=== PATIENT | male | born 1970 | race Hispanic/Latino ===

== ENCOUNTER 2018-03-20 18:53 | Inpatient (IN) | payer SELFPAY ==
[2018-03-20 19:30] LABS: #Lymphocytes 1.4 thou/uL (1.20-3.40); #Monocytes 0.7 thou/uL (0.11-0.59); #Neutrophils 12.8 thou/uL (1.40-6.50); %Basophils 0.2 % (0.0-1.0); %Eosinophils 0.3 % (0.0-10.0); %Lymphocytes 9.3 % (21.0-51.0); %Monocytes 4.9 % (0.0-10.0); %Neutrophils 85.4 % (42.0-75.0); Hemoglobin 17.3 g/dL (14.0-18.0); Mean Corpuscular HGB CONC 34.1 g/dL (32.0-36.0); Mean Corpuscular Hemoglobin 31.6 pg (27.0-31.0); Mean Corpuscular Volume 92.9 fL (78.0-98.0); Mean Platelet Volume 7.6 fL (7.4-10.4); Platelet Count 273 thou/uL (130-400); RBC Distribution Width 11.7 % (11.5-14.5); Red Blood Cell (RBC) Count 5.46 mill/uL (4.70-6.10)
[2018-03-20 19:40] LABS: Bilirubin Negative (Negative); Blood, Urine Negative (Negative); Clarity TURBID (Clear); Glucose, Urine (Dipstick) Negative (Negative); Leukocyte Negative (Negative); Nitrite Negative (Negative); Protein, Urine (Dipstick) 100 mg/dL (Neg-Trace); Specific Gravity, Urine 1.037 (1.002-1.036); Urobilinogen 0.2 mg/dL (0.2-1.0); pH, Urine 5.5 (5.0-9.0)
[2018-03-20 19:42] LABS: Bacteria/HPF None Seen HPF (None Seen); Pathc Cast-AUWi Flag 3.19 (0-2.49); RBC/HPF 0-3 HPF (0-3); Squamous Epithelial 0-3 HPF (0-3); WBC/HPF 0-3 HPF (0-3)
[2018-03-20 19:50] LABS: Crystals/HPF 4+ AMORPH URATES HPF (Negative); Hyaline Casts/LPF NONE SEEN LPF (0-3 Hyaline); Other Casts/LPF None Seen LPF (0-3 Hyaline)
[2018-03-20 19:54] LABS: ALT (SGPT) 69 U/L (8-55); AST (SGOT) 71 U/L (5-34); Albumin 5.5 g/dL (3.5-5.0); Alkaline Phosphatase 105 U/L (40-150); Anion Gap 18 mmol/L (10-20); BUN (Urea Nitrogen) 31 mg/dL (8.9-20.6); Bilirubin, Total 1.3 mg/dL (0.2-1.2); CK (CPK) 986 U/L (30-200); Calc. Creatinine Clearance 0 mL/min (70-130); Calcium 10.6 mg/dL (7.8-10.44); Carbon Dioxide 27 mmol/L (22-29); Chloride 95 mmol/L (98-107); Estimated GFR-MDRD 61; Globulin 4.5 g/dL (2.4-3.5); Glucose 192 mg/dL (70-105); Potassium 3.6 mmol/L (3.5-5.1); Sodium 136 mmol/L (136-145)
[2018-03-20] MEDS ORDERED: Ondansetron ODT 4 MG TAB ONE (23:05)
[2018-03-20] MEDS ORDERED: hydrALAZINE 20 MG/ML VIAL ONE (23:58)
[2018-03-20] MEDS ORDERED: Ketorolac Tromethamine 30 MG/ML VIAL ONE (23:58)
[2018-03-21 00:19] LABS: Lactic Acid 5.5 mmol/L (0.5-2.2)
[2018-03-21 00:24] LABS: Troponin I Less than 0.010 ng/mL (< 0.028)
[2018-03-21 00:26] LABS: CKMB 8.5 ng/mL (0-6.6)
[2018-03-21] MEDS ORDERED: Labetalol HCl 100 MG/20 ML VIAL ONE (03:00)
[2018-03-21 05:26] LABS: Lactic Acid 1.2 mmol/L (0.5-2.2)
[2018-03-21 06:13] LABS: Medtox Control Line Valid? VALID (VALID); Medtox Reader # READER 4; Methamphetamine Detected (NotDetected); THC/Cannabinoid Screen Detected (NotDetected)
[2018-03-21 06:14] LABS: Amphetamine Not Detected (NotDetected); Barbiturates Screen Not Detected (NotDetected); Benzodiazepine Screen Not Detected (NotDetected); Cocaine Metabolite Screen Not Detected (NotDetected); Methadone Not Detected (NotDetected); Opiate Screen Not Detected (NotDetected); Oxycodone Screen Not Detected (NotDetected); Phencyclidine (PCP) Not Detected (NotDetected); Tricyclic Screen Not Detected (NotDetected)
[2018-03-21 07:52] VITALS: BMI 25.7
[2018-03-21] MEDS ORDERED: Acetaminophen 325 MG TAB PO PRN (08:38)
[2018-03-21] MEDS ORDERED: Ondansetron HCl/PF 4 MG/2 ML Vial IVP PRN (08:38)
[2018-03-21] MEDS ORDERED: Ondansetron ODT 4 MG TAB SL PRN (08:38)
[2018-03-21 12:04] VITALS: BP 149/90; TEMP 98.1
[2018-03-21 13:14] LABS: ALT (SGPT) 46 U/L (8-55); AST (SGOT) 45 U/L (5-34); Albumin 4.3 g/dL (3.5-5.0); Alkaline Phosphatase 79 U/L (40-150); Anion Gap 13 mmol/L (10-20); BUN (Urea Nitrogen) 23 mg/dL (8.9-20.6); Bilirubin, Total 1.5 mg/dL (0.2-1.2); Calc. Creatinine Clearance 132 mL/min (70-130); Calcium 9.5 mg/dL (7.8-10.44); Carbon Dioxide 25 mmol/L (22-29); Chloride 103 mmol/L (98-107); Estimated GFR-MDRD Greater than 90; Globulin 3.4 g/dL (2.4-3.5); Glucose 124 mg/dL (70-105); Potassium 3.5 mmol/L (3.5-5.1); Protein, Total 7.7 g/dL (6.0-8.3); Sodium 137 mmol/L (136-145)
--- NOTE | 2018-03-21 13:22 | SS ---
DATE OF ADMISSION: 03/21/2018 DATE OF DISCHARGE: 03/21/2018 DISCHARGE DIAGNOSES: 1. Dehydration. 2. Acute kidney injury, resolved. 3. Mild rhabdomyolysis, resolved. 4. Methamphetamine use. 5. Myalgias. CONSULTATIONS: None. PROCEDURES: None. HISTORY OF PRESENT ILLNESS: Mr. Christopher is a 47-year-old gentleman presented to the [facility] for nausea, vomiting, and diffuse muscle aches after working outside for the last week and tryi ng to keep up with fluids. He developed myalgias and generalized aches, who presented to the emergency department. He was found to have a creatinine about 50% more than his baseline, elevated CK at 900 and elevated lactic acid. He was given IV fluids and we were called for admission. He was placed inpatient on telemetry; however, there are no beds, so he is overflowed to the [facility]. Bakari altamirano is getting IV fluids since this morning. The nausea has resolved. He is feeling markedly better a nd is able to tolerate food. PAST MEDICAL HISTORY: 1. Hypertension. 2. Medical nonadherence to treatment. PAST SURGICAL HISTORY: None. HOME MEDICATIONS: None except for occasional [id number] Nexium. ALLERGIES: No known drug allergies. FAMILY HISTORY: Negative for clotting or bleeding disorder, no immune dysfunction. SOCIAL HISTORY: He denies habits. He has a urine drug screen positive for methamphetamine and marij uana. He does admit to marijuana, but denies doing methamphetamine. REVIEW OF SYSTEMS: Ten point review of systems was negative except as stated as per HPI. PHYSICAL EXAMINATION: VITAL SIGNS: Temperature 98.1, pulse 81, blood pressure is 149/90, respiratory rate 18, satting 93%- 95% on room air. GENERAL: He is awake. He is alert. He is oriented x3, disheveled looking male who a ppears to be in no acute distress. HEENT: Head is normocephalic, atraumatic. Pupils are equal, round, and reactive to light bilaterall y. Mucous membranes are moist. There is no visible lesions. No thrush. NECK: Supple. There is no lymphadenopathy, JVD, or thyromegaly. LUNGS: Clear. No wheeze, no rales or rhonchi. CARDIOVASCULAR: Normal S1, S2. No S3 or S4. No audible murmurs. ABDOMEN: Soft, nontender, nondistended. No hepatosplenomegaly. No rebound, rigidity or guarding. He has got good bowel sounds. EXTREMITIES: No cyanosis, no clubbing, no edema. He has got 2+ peripheral pulses in dorsalis pedis, posterior tibial pulses. SKIN: Warm, moist and well perfused. He has no other rashes or lesions. MUSCULOSKELETAL: Normal to inspection. Large joints appear normal. There is no evidence of inflamm ation or palpable effusions. He has got no muscle tenderness. NEUROLOGIC: Cranial nerves II through XII are grossly intact. He has no focal deficits. He has nor mal speech. He has 5/5 strength in all 4 extremities. LABORATORY DATA: Admission white blood cell count of 15,000, hemoglobin 17.3, hematocrit 50.7, plate let count is 273,000 with a slight granulocytosis. His initial chemistry profile showed a CMP that w as fairly normal. Sodium 136, potassium 3.6, chloride 95, bicarbonate 27, BUN 31, creatinine 1.27, g lucose 192. Lactic acid initially was 2.2 with a repeat 5.5 and then down to 3.2 at 0123 today. His LFTs were slightly elevated at 71 and 69 with alkaline phosphatase of 105. CK is 96 with a repeat o f 642. Total protein was elevated at 10 with an albumin of 5.5 and globulin of 4.5. CK-MB was sligh tly elevated at 8.5 with a normal undetectable troponin less than 0.010. Urinalysis was normal excep t for slightly elevated specific gravity. Urine drug screen showed methamphetamines and THC positive. ASSESSMENT AND PLAN: 1. Dehydration. The patient got IV fluids and is resolved. 2. Acute kidney injury, resolved with fluids. 3. Mild rhabdomyolysis, resolved with fluids. 4. Methamphetamine and marijuana abuse, counseling. Patient was admitted to floor and hydrated. On my evaluation, he was stable for discharge. PHYSICAL EXAMINATION: The patient was seen and examined at the time of discharge. Discharge plan and disposition was discussed with the patient [id number] at the bedside. DISCHARGE MEDICATIONS: None. DISCHARGE ACTIVITY: As tolerated. DISCHARGE DIET: Regular, heart healthy diet with plenty of fluids. FOLLOWUP APPOINTMENTS: The patient needs to establish with the PCP. No specific followup was made. DISCHARGE CONDITION: Stable.
--- NOTE | 2018-03-23 12:09 | EKG ---
Test Reason : Blood Pressure : / mmHG Vent. Rate : 094 BPM Atrial Rate : 094 BPM P-R Int : 136 ms QRS Dur : 086 ms QT Int : 364 ms P-R-T Axes : 052 028 044 degrees QTc Int : 455 ms Normal sinus rhythm Possible Left atrial enlargement Nonspecific ST and T wave abnormality Abnormal ECG Confirmed by DAVIS STARK ([id number]), associate entertainment editor MALA TEIXEIRA ([id number] on 03/23/2018 12:09:19 PM Referred By: Confirmed By:DAVIS STARK
== END 2018-03-21 14:12 | disposition home or self-care (01) | DRG 641 ==
LOC: ERS 18:53 → ERHOLD 03-21 04:44 → IMCU/EMU 03-21 07:46
PROVIDERS: ADMIT Internal Medicine; ATTEND Internal Medicine
DX: E86.0 Dehydration (principal); N17.9 Acute kidney failure, unspecified; M62.82 Rhabdomyolysis; M79.1 Myalgia; I10 Essential (primary) hypertension; F15.10 Other stimulant abuse, uncomplicated; F12.10 Cannabis abuse, uncomplicated
CPT/HCPCS: 36415; 80053; 80306; 81003; 81015; 82550; 82553; 83605; 84484; 85025; 93005; 94760; J0360; J1885; Q0162